=== PATIENT | male | born 1960 | race Caucasian/White ===

== ENCOUNTER 2018-10-25 07:06 | Day surgery (SDC) | payer OTHER ==
[2018-10-24 14:53] VITALS: BMI 36.9
[2018-10-25] VITALS (13 sets, daily range): BP systolic 87–166; BP diastolic 55–78; PULSE 58–62; RESP 12–19; Ht 167.6 cm; Wt 102.0 kg
[~2018-10-25] VITALS: Ht 167.6 cm; Wt 102.0 kg
[~2018-10-25 07:06] MED LIST: CEFAZOLIN 2 GM/50 ML (PMX) 50 ML IVPB ONE; SOD CHLORIDE 0.9% 1,000 ML IV SCH
--- NOTE | 2018-10-25 07:53 | PREAC ---
Date/Time of Note Date/Time of Note DATE: 10/25/18 TIME: 07:52 Anesthesia Eval and Record Evaluation Time Pre-Procedure Interview DATE: 10/25/18 TIME: 07:52 Age 58 Sex male NPO: 8 hrs Preoperative diagnosis right groin mass Planned procedure excision right groin mass Past Medical History Past Medical History: Includes Cardio: HTN, Dyslipidemia GI: Obesity Surgery & Anesthesia Issues No known issue Meds Anticoagulation: No Beta Canelo within 24 hr: No Reason Beta Canelo not given: Pt. not on B-Canelo Current Medications Sodium Chloride 1,000 ml @ 75 mls/hr [id number] IV ; Start 10/25/18 at 06:00; Stop 10/25/18 at 20:00 Meds reviewed: Yes Allergies Coded Allergies: No Known Drug Allergy (Verified Allergy, Unknown, 10/24/18) Allergies Reviewed: Yes Labs/Studies Labs Reviewed: Reviewed by anesthesiologist test: N/A Studies: ECG (sr), CXR (nl) Pre-procedure Exam Airway: Adequate mouth opening Mallampati: Mallampati II Teeth: Normal Lung: Normal Heart: Normal ASA Physical Status ASA physical status: 2 Emergency: None Planned Anesthetic General/MAC: LMA Planned Pain Management Parenteral pain med Pre-operative Attestations Prior to commencing anesthesia and surgery, the patient was re-evaluated, there was verification of: *The patient's identity *The results of appropriate recent lab work and preoperative vital signs *The above evaluation not changing prior to induction *Anesthetic plan, risk benefits, alternative and complications discussed with patient/family; questions answered; patient/family understands, accepts and wishes to proceed. AVINASH GRANDA MD Oct 25, 2018 07:53
[2018-10-25] MEDS ORDERED: FENTAnyl 50 MCG/ML VIAL ONE (07:59)
[2018-10-25] MEDS ORDERED: ONDANSETRON 4 MG INJ ONE (07:59)
[2018-10-25] MEDS ORDERED: CEFAZOLIN 1 GM INJ ONE (07:59)
[2018-10-25] MEDS ORDERED: MIDAZOLAM 1 MG/ML 2 ML INJ ONE (07:59)
[2018-10-25] MEDS ORDERED: PROPOFOL 20 ML ONE (07:59)
[2018-10-25] MEDS ORDERED: METOCLOPRAMIDE 10 MG INJ ONE (07:59)
[2018-10-25] MEDS ORDERED: OXYCODONE/ACETAMINOPHEN (5/325) TAB PO PRN ×2 (08:00)
[2018-10-25] MEDS ORDERED: DIPHENHYDRAMINE 50 MG INJ IV PRN (08:00)
[2018-10-25] MEDS ORDERED: FENTAnyl 50 MCG/ML VIAL IV PRN ×3 (08:00)
[2018-10-25] MEDS ORDERED: HYDROmorphONE 1 MG/5 ML IV SYRINGE IV PRN ×3 (08:00)
[2018-10-25] MEDS ORDERED: ONDANSETRON 4 MG INJ IV PRN (08:00)
[2018-10-25] MEDS ORDERED: KETOROLAC 30 MG INJ IV PRN (08:00)
[2018-10-25] MEDS ORDERED: BUPIVACAINE 0.25% (MPF) 30 ML INJ ONE (08:00)
[2018-10-25] MEDS ORDERED: MEPERIDINE 25 MG INJ IV PRN (08:00)
[2018-10-25] MEDS ORDERED: KETOROLAC 30 MG INJ ONE (08:01)
--- NOTE | 2018-10-25 09:50 | OPR ---
Date/Time of Note Date/Time of Note DATE: 10/25/18 TIME: 09:48 Operative Report Procedure Date: Oct 25, 2018 Preoperative Diagnosis right groin mass Postoperative Diagnosis same Operation/Procedure Performed 1. excision of right groin mass 11 cm mass 11 cm incision 2. localized adjacent tissue transfer with the use of skin flaps 33 sq cm defect right groin 3. therapeutic injection of subcutaneous local anesthesia Surgeon see signature line Plumber Supervisor none Anesthesia Type: general Estimated Blood Loss: 0 - 10 ml's Transfusion none Specimen right groin mass Grafts/Implants none Complications none Pt Condition Post Procedure: stable Indications This is a 58-year-old male with a right groin mass. He request surgical excision. Risks alternatives benefits and personal were discussed the patient. Patient expresses understanding and consents to the operation. Procedure Description Patient is taken to the OR and prepped and draped in usual sterile fashion. Surgical timeout was performed. IV antibiotics given. Elliptical incision was made over the right groin mass with a 10 blade. Dissection with cautery was carried onto the subcutaneous tissues. The mass is excised. Good hemostasis status. Due to large tissue defect localization just transfer with these of skin flaps were performed. Multilayer closed with interrupted 2-0 Vicryl and skin skyla. Therapeutic subcutaneous local anesthesia is injected at the incision site. Dry dressings were applied. Raghav STEEL Oct 25, 2018 09:50
[2018-10-25] MEDS ORDERED: HYDROCODONE/APAP (5/325) TAB PO ONE (10:00)
--- NOTE | 2018-10-25 12:24 | PAC ---
Date/Time of Note Date/Time of Note DATE: 10/25/18 TIME: 12:24 Post-Anesthesia Notes Post-Anesthesia Note Last documented vital signs Vital Signs Date Temp Pulse Resp B/P (MAP) Pulse Ox O2 O2 Flow FiO2 Time Delivery Rate 10/25/18 97.1 58 12 116/66 96 Room Air 09:40 (83) Activity: WNL Respiratory function: WNL Cardiovascular function: WNL Mental status: Baseline Pain reasonably controlled: Yes Hydration appropriate: Yes Nausea/Vomiting absent: No AVINASH GRANDA MD Oct 25, 2018 12:24
== END 2018-10-25 10:15 | disposition home or self-care (01) ==
LOC: SDS 07:06
PROVIDERS: ATTEND Surgery
DX: D21.5 Benign neoplasm of connective and other soft tissue of pelvis (principal); I10 Essential (primary) hypertension; E78.5 Hyperlipidemia, unspecified; E66.9 Obesity, unspecified
CPT/HCPCS: 14301; 82962; J0690; J1885; J2250; J2405; J2765; J3010; Z7610; 88307